=== PATIENT | male | born 1955 | race Caucasian/White ===

== ENCOUNTER → 2021-10-23 | Outpatient (CLI) | payer MEDICARE, BC ==
[~2021-10-23] MED LIST: PRINIVIL20 MG PO; ZOCOR 40MG40 MG PO
== END ==
LOC: COL.RAD 07:45
DX: G45.9 Transient cerebral ischemic attack, unspecified (principal)

== ENCOUNTER 2023-06-02 06:57 | Day surgery (SDC) | payer MEDICARE, BC ==
[~2023-06-02] VITALS: Ht 182.9 cm; Wt 94.5 kg
[2023-06-02] VITALS (16 sets, daily range): BP systolic 123–169; BP diastolic 69–95; PULSE 64–82; TEMP 96.9
[2023-06-02] MEDS ORDERED: 1/2 NS 1,000 ML IV SCH (07:30)
[2023-06-02] MEDS ORDERED: TOPROL XL 25MG25 MG PO ×2 (07:53→13:40)
[2023-06-02] MEDS ORDERED: VITAMIN D31000 I1 PO (07:54)
[2023-06-02] MEDS ORDERED: ZESTRIL 20MG TA20 MG PO (07:54)
[2023-06-02] MEDS ORDERED: METAMUCIL0.52 G1 PO (07:58)
[2023-06-02 08:00] LABS: HEMATOCRIT 45.5 % (42.0-52.0); MEAN CELL VOLUME 93 fl (80.0-100.0); MEAN CORPUSCULAR HEMOGLOBIN 33 pg (27-31); MEAN CORPUSCULAR HGB CONC 35 g/dl (33.0-37.0); MEAN PLATELET VOLUME 10.6 fl (7.4-10.4); PLATELET COUNT 204 K/mm3 (130-400); REDCELL DISTRIBUTION WIDTH-CV 12.7 % (11.5-14.5)
[2023-06-02] MEDS ORDERED: THE MEDICINE S200 M2 PO (08:00)
[2023-06-02] MEDS ORDERED: ASPIRIN 81M81 MG/TA2 PO (08:01)
[2023-06-02 08:03] LABS: PROTHROMBIN TIME 10.8 SECONDS (9.7-12.8)
[2023-06-02] MEDS ORDERED: CLARITIN 1010 MG/TAB PO (08:03)
[2023-06-02] MEDS ORDERED: MELATONIN ER10 MG PO (08:03)
[2023-06-02] MEDS ORDERED: IRON TABLETS325 MG PO (08:04)
[2023-06-02] MEDS ORDERED: NITROSTAT0.4 MG/TAB SL ×2 (08:05→13:42)
[2023-06-02 08:09] LABS: CALCIUM 9.1 mg/dL (8.4-10.2); CREATININE, serum 0.99 mg/dL (0.72-1.25); POTASSIUM 4.4 mmol/L (3.5-4.5)
[2023-06-02] MEDS ORDERED: Nitroglycerin 2% Topical Oint 1 GM UD TD SCH (08:34)
--- NOTE | 2023-06-02 08:57 | NUR ---
Refer to [facility] Report for procedural sedation/notes
[2023-06-02] MEDS ORDERED: niCARdipine (Cath Lab) 100 MCG/ML 10 ML VIAL IA SCH (09:11)
[2023-06-02] MEDS ORDERED: Heparin 1,000 UNITS/ML 10 ML Multi-Dose VIAL IV SCH (09:12)
[2023-06-02] MEDS ORDERED: Midazolam 2 MG/2 ML VIAL IV SCH (09:48)
[2023-06-02] MEDS ORDERED: fentaNYL 50 MCG/ML 2 ML VIAL IV SCH (09:48)
[2023-06-02] MEDS ORDERED: Iohexol 350 - 100 ML VIAL INCOR ONE (09:49)
--- NOTE | 2023-06-02 13:25 | NUR ---
All air removed from right radial band in 2-3 ml incriments.No bleeding observed at site.
[2023-06-02] MEDS ORDERED: IMDUR 60MG60 MG/TAB PO (13:40)
--- NOTE | 2023-06-02 15:45 | NUR ---
Discharge instructions given to pt.Pt verbalizes understanding.Dressing to right radial site observed clean,dry,intact.Pt escorted out via wheelchair by this nurse.
== END 2023-06-02 17:02 ==
LOC: COL.CAR 06:57
PROVIDERS: Internal Medicine Cardiovascular Disease
DX: I25.10 Atherosclerotic heart disease of native coronary artery without angina pectoris (principal); R94.39 Abnormal result of other cardiovascular function study; E78.01 Familial hypercholesterolemia; I35.1 Nonrheumatic aortic (valve) insufficiency; Z87.891 Personal history of nicotine dependence; Z79.82 Long term (current) use of aspirin; Z79.899 Other long term (current) drug therapy
CPT/HCPCS: C1769; C1887; J1644; J2250; J2404; J3010; Q9967

== ENCOUNTER 2023-08-10 12:02 | Outpatient (RCR) | payer MEDICARE, BC ==
[~2023-08-10 12:02] MED LIST changes: +ASPIRIN 81M81 MG/TA2 PO; +CLARITIN 1010 MG/TAB PO; +IMDUR 60MG60 MG/TAB PO; +IRON TABLETS325 MG PO; +MELATONIN ER10 MG PO; +METAMUCIL0.52 G1 PO; +NITROSTAT0.4 MG/TAB SL; +THE MEDICINE S200 M2 PO; +TOPROL XL 25MG25 MG PO; +VITAMIN D31000 I1 PO; +ZESTRIL 20MG TA20 MG PO
== END 2023-08-11 | disposition home or self-care (01) ==
LOC: COL.CR
DX: Z48.812 Encounter for surgical aftercare following surgery on the circulatory system (principal); Z95.1 Presence of aortocoronary bypass graft; I25.2 Old myocardial infarction